=== PATIENT | male | born 1960 | race Caucasian/White ===

== ENCOUNTER 2019-03-29 19:17 | Emergency (ER) | payer OTHER ==
[~2019-03-29] VITALS: Ht 182.9 cm; Wt 57.2 kg
[2019-03-29 19:31] VITALS: BP 163/90
--- NOTE | 2019-03-29 19:32 | NUR ---
ER Nurse Note: Pt walked in c/o redness in RT eye for one year. Pt stated he and his significant other has been passing it to each other. RT eye red with slight drainage. Pt stated there is discharge and was on medication.; effective for a while but s/s returns. Pt hands look dirty and pt stated he wipes his eyes with his shirt. Pt denies pain. LT eye slightly red. Visual acuity done. Will continue to montior.
--- NOTE | 2019-03-29 19:44 | Emergency Room Report ---
History of Present Illness General Chief Complaint: Eye Problems Source: Patient Present Illness HPI 58-year-old male with no significant past medical history here complaining of pain and pruritus as well as yellow discharge from the right eye intermittently for the past year. Patient reports that he has been treated for viral conjunctivitis multiple times however reports that he keeps jhoana in the right eye in the past few days that has been worsening. Denies any blurred vision and photophobia. Denies URI symptoms. Denies trauma to the eye, history of diabetes and other associated symptoms. Has not taken any medication for symptom relief. Denies fever and chills. Has not yet seen cafeteria cook for his symptoms. Denies foreign body sensation, curtainlike sensation, change of vision and acuity. Allergies: Coded Allergies: CODEINE (Verified Allergy, Unknown, 03/29/19) PENICILLINS (Verified Allergy, Unknown, 03/29/19) Patient History Past Medical History: see triage record Past Surgical History: unable to obtain Pertinent Family History: none Immunizations: UTD Reviewed Nursing Documentation: PMH: Agreed; PSxH: Agreed Nursing Documentation-PMH Past Medical History: No Stated History Review of Systems All Other Systems: negative except mentioned in HPI Physical Exam Vital Signs Date Time Temp Pulse Resp B/P (MAP) Pulse Ox O2 Delivery O2 Flow Rate FiO2 03/29/19 19:24 98.4 86 16 163/90 (114) 100 Room Air Sp02 EP Interpretation: reviewed, normal General Appearance: no apparent distress, alert, GCS 15, non-toxic, other - Appears disheveled Head: normocephalic, atraumatic Eyes: right eye other - Conjunctivae injected on the right eye with discharge ENT: hearing grossly normal, normal pharynx, no angioedema, normal voice Neck: full range of motion, supple, supple/symm/no masses Respiratory: chest non-tender, lungs clear, normal breath sounds, no rhonchi, no wheezing, speaking full sentences Cardiovascular #1: regular rate, rhythm, no edema, no murmur, normal capillary refill Gastrointestinal: normal bowel sounds, non tender, soft, non-distended, no guarding, no rebound Rectal: deferred Genitourinary: no CVA tenderness Musculoskeletal: back normal, gait/station normal, normal range of motion, non- tender Neurologic: normal inspection, alert, oriented x3, responsive Psychiatric: judgement/insight normal, memory normal, mood/affect normal, no suicidal/homicidal ideation Skin: no rash Lymphatic: no adenopathy Medical Decision Making PA Attestation All diagnoses and treatment plans were reviewed and discussed with my supervising physician Dr. Dinero Diagnostic Impression: Primary Impression: Bacterial conjunctivitis of right eye ER Course 58-year-old male with no significant past medical history here complaining of pain and pruritus as well as yellow discharge from the right eye intermittently for the past year. Patient reports that he has been treated for viral conjunctivitis multiple times however reports that he keeps jhoana in the right eye in the past few days that has been worsening. Denies any blurred vision and photophobia. Denies URI symptoms. Denies trauma to the eye, history of diabetes and other associated symptoms. Has not taken any medication for symptom relief. Denies fever and chills. Has not yet seen cafeteria cook for his symptoms. Denies foreign body sensation, curtainlike sensation, change of vision and acuity. Ddx considered but are not limited to: bacterial conjunctivitis, allergic conjunctivitis, viral conjunctivitis, periorbital cellulitis, global trauma, retinal detachment, glaucoma Vital signs: are WNL, pt. is afebrile H&PE are most consistent with: Bacterial conjunctivitis ORDERS: Polymycin eyedrops ED INTERVENTIONS: None required at this time. DISCHARGE: At this time pt. is stable for d/c to home. Will provide printed patient care instructions, and any necessary prescriptions. Care plan and follow up instructions have been discussed with the patient prior to discharge. I advised patient to follow-up with cafeteria cook that this has been intermittently occurring to him the past year out and also change pillowcases and avoid cross-contamination. Patient appears disheveled as well as having dirty hands. Return to emergency room if worsening symptoms Last Vital Signs Date Time Temp Pulse Resp B/P (MAP) Pulse Ox O2 Delivery O2 Flow Rate FiO2 03/29/19 19:31 98.4 86 16 163/90 100 Room Air Disposition: HOME, SELF-CARE Condition: Stable Scripts Polymyxin/Trimethoprim (Polytrim Eye Drops) 10 Ml Drops 1 DROP RIGHT EYE Q4H for 7 Days, #10 ML Prov: Salma Shaw 03/29/19 Patient Instructions: Bacterial Conjunctivitis, [id number] Additional Instructions: Use drops as directed, change her pillowcase, follow-up with your eye doctor. If worsening symptoms return to the emergency room Salma Shaw Mar 29, 2019 19:43
[2019-03-29] MEDS ORDERED: POLYTRIM OP SOL10 ML RIGHT EYE (19:46)
[2019-03-29 19:52] VITALS: BP 163/90
== END 2019-03-29 19:52 | disposition home or self-care (01) ==
LOC: EMR 19:45
DX: H10.89 Other conjunctivitis (principal); Z88.6 Allergy status to analgesic agent; Z88.0 Allergy status to penicillin
CPT/HCPCS: 99282